=== PATIENT | male | born 1950 | race Caucasian/White ===

== ENCOUNTER 2017-09-24 07:09 | Day surgery (SDC) | payer OTHER ==
[2017-09-24] VITALS (8 sets, daily range): BP systolic 116–143; BP diastolic 69–82; PULSE 64–82; RESP 16–18; TEMP 97.8–99.2; O2SAT 92–97
[~2017-09-24] VITALS: Ht 180.3 cm; Wt 107.7 kg
[~2017-09-24 07:09] MED LIST: ADVA250A INH; ALBU1AER INH; ALUM5LIQ PO; AMIO200T PO; ASCO500C PO; CARD240C6 OR; CENTTAB9 PO; COMPTAB11; DOCU1CAP39 PO; FURO1TAB93 PO; KLOR20TA6 PO; LANO0.1212 OR; LISI-360 PO; MAGN30S PO; MAGN500T4 OR; METF-324 PO; OMEG1205; OXYC5 PO; PERC5TAB12 PO; PRAV20TA PO; SERT-129 PO; STOO100C PO; TEST200I13 IM; VALI10TA PO; VITA200C3 PO; VITAMIND; WARF-60 PO; ZOLP10TA3 PO; [UNRECOGNIZED DRUG - CODE] OR
[2017-09-24] MEDS ORDERED: INSULIN HUMAN REGULAR 1,000 UNITS/10 ML VIAL SQ PRN (08:15)
[2017-09-24] MEDS ORDERED: LACTATED RINGER'S 1000 ML IV PRN (08:15)
[2017-09-24] MEDS ORDERED: POVIDONE IODINE 5% (ANTISEPSIS KIT) 4 APPLICATIONS EACH NARE PRN (08:15)
[2017-09-24] MEDS ORDERED: LORazepam 1 MG TAB SL SCH (08:15)
[2017-09-24] MEDS: SODIUM CHLORID 0.9% 500 ML INJ 500 ML IV SCH (08:15)
[2017-09-24] MEDS ORDERED: SODIUM CHLORID 0.9% 500 ML IV PRN (08:15)
[2017-09-24] MEDS ORDERED: CHLORHEXIDINE GLUCONATE 2 % 1 PACK (2 CLOTHS) TOPICAL PRN (08:15)
[2017-09-24] MEDS ORDERED: METOPROLOL TARTRATE 25 MG TAB PO PRN (08:15)
[2017-09-24] MEDS ORDERED: VENTAER INH (08:40)
[2017-09-24] MEDS ORDERED: AMIO0.1T PO (08:40)
[2017-09-24] MEDS ORDERED: DIAZ2 PO (08:40)
[2017-09-24] MEDS ORDERED: XARE20TA PO (08:40)
[2017-09-24] MEDS ORDERED: LISI10TA3 PO (08:40)
[2017-09-24] MEDS ORDERED: ADVA100A INH (08:40)
[2017-09-24] MEDS ORDERED: DILT120T PO (08:40)
[2017-09-24] MEDS ORDERED: SERT-129 PO (08:40)
[2017-09-24 09:00] LABS: APTT (PATIENT) 25.9 SEC (24.3-30.1); PROTHROMBIN TIME - PATIENT 11.6 SEC (9.8-11.6)
[2017-09-24 09:05] LABS: AUTOMATED NEUTROPHIL # 3.1 TH/MM3 (1.8-7.7); BASOPHIL % 0.3 % (0.0-2.0); EOSINOPHIL # 0.3 TH/MM3 (0-0.4); EOSINOPHIL % 4.9 % (0.0-4.0); HEMATOCRIT 39.9 % (39.0-51.0); HEMO FLAGS DIFF FINAL; LYMPH % 26.5 % (9.0-44.0); LYMPHOCYTE # 1.4 TH/MM3 (1.0-4.8); MEAN CELL VOLUME 92.2 FL (80.0-100.0); MEAN CORPUSCULAR HEMOGLOBIN 31.1 PG (27.0-34.0); MEAN CORPUSCULAR HGB CONC 33.7 % (32.0-36.0); MONO % 10.5 % (0.0-8.0); NEUT % 57.8 % (16.0-70.0); PLATELET COUNT 178 TH/MM3 (150-450); RED BLOOD COUNT 4.32 MIL/MM3 (4.50-5.90); RED CELL DISTRIBUTION WIDTH 12.6 % (11.6-17.2); WHITE BLOOD COUNT 5.3 TH/MM3 (4.0-11.0)
[2017-09-24 09:24] LABS: BICARBONATE 29.9 MEQ/L (21.0-32.0); POTASSIUM 3.8 MEQ/L (3.5-5.1)
[2017-09-24] MEDS ORDERED: HEPARIN-D5W 25,000 U/250 ML 250 ML ONE (09:35)
[2017-09-24] MEDS ORDERED: ISOPROTERENOL HCL 1 MG/5 ML AMP ONE (09:36)
[2017-09-24] MEDS ORDERED: FUROSEMIDE 40 MG/4 ML VIAL ONE (09:36)
[2017-09-24] MEDS ORDERED: HEPARIN SODIUM - IV 10,000 UNITS/10 ML VIAL ONE ×2 (09:36→12:00)
[2017-09-24] MEDS ORDERED: SODIUM CHLOR 0.9% 250 ML INJ 250 ML ONE (09:36)
[2017-09-24] MEDS ORDERED: PROTAMINE SULFATE 50 MG/5 ML VIAL ONE (09:36)
[2017-09-24] MEDS ORDERED: LEVOFLOXACIN 500 MG PREMIX INJ 100 ML IV ONE (10:08)
[2017-09-24] MEDS ORDERED: HEPARIN-NS/PF INJ 1,000 ML ONE (10:10)
[2017-09-24] MEDS ORDERED: RESP: ALBUTEROL 2.5 MG/3 ML NEB (SCH) ONE (10:34)
--- NOTE | 2017-09-24 12:39 | CATHPROC ---
[employer] HIS Report Study Information Study Number Admission Scheduled Start Study Start [id number] Sep 24 2017 7:09AM 09/24/2017 Sep 24 2017 9:36AM [place] Service Electrophysiology Study Admit Source Facility Department Other [facility] - Portrait Consultant Physician and Clinical Staff Initial Hans Padilla Dry Kiln Operator Denys Lindquist,RT(R) Other Anesthesia, EMPLOYMENT PROGRAMS ANALYST Recorder Barbara Sandoval,RN Scrub Carla Connell,RT(R) TECH2 Procedures Performed Procedure Location (Site) Vessel Name Cardioversion ICE CATHETER INSERT RA Atruim Equipment Time Railroad Signal And Switch Operator Description Size Mfg Part Number Used/Scraped NEEDLE, TRANSSEPTAL NRG 98 10:27 [facility] [id number] Used C1 [employer]/ EP 10:27 KIT, TRANSDUCER / AFIB [id number] Used PACER [id number] CATHETER, TACTICATH ABLAT BUNDLE 10:27 [facility] [place] Used 65 BUNDLE *[id number] BUNDLE [id number] CATHETER, FR7 OPTIMA SPIRAL 10:27 [facility] [place] FR7 *[id number]- Used BUNDLE BUNDLE [id number] 10:27 [facility] [place] CATHETER, JSN, QUAD BUNDLE FR 5 *[id number]- Used BUNDLE [id number] 10:27 [facility] CATHETER, JSN, QUAD BUNDLE FR 5 *[id number]- Used BUNDLE [id number] SET, COOL POINT TUBING 10:27 [facility]UND[facility] [place] *[id number]- Used BUNDLE BUNDLE SHEATH, FR8.5 STEERABLE SM 10:27 [facility] [place] 71CM [id number] Used 71CM BUNDLE COVER, TRANSDUCER CABLE 10:27 [employer]ENTS [id number] Used ACUNAV 10:27 CORDIS/PACER SHEATH, FR10 TAHIR 11CM FR 10 [id number] Used 10:27 CORDIS/PACER SHEATH, FR9 TAHIR 11CM FR 9 [id number] Used [id number] 10:27 [employer]ES PACK, CCL CUSTOM * Used *[id number] 10:27 [employer] PACER YA, LIMB * 9960 *[id number] Used [id number] 10:27 [employer] MEDICAL SHEATH, FR4.5 PRELUDE 11CM FR 4.5 Used 035ACT [id number] 10:47 [employer] MEDICAL SHEATH, FR4.5 PRELUDE 11CM FR 4.5 Used 035ACT [id number] 10:27 NAMIC TUBING, HIGH PRESSURE 48" 48" Used *[id number] 10:27 NAMIC TUBING, HIGH PRESSURE 48" 48" Used *[id number] 10:27 [employer] MEDICAL BLANKET,WARM AIR CCL * Used *[id number] 10:27 [facility] [place] MEDICAL ELECTRODE KIT, ANJU X SURFACE * [id number] Used [id number] 10:27 [facility] MEDICAL SHEATH, EPS, FR6 FAST CATH FR 6 Used *[id number] 10:27 [facility] MEDICAL SHEATH, EPS, FR7 FAST CATH FR 7 [id number] Used [id number] 10:27 [facility] MEDICAL SHEATH, EPS, FR8 FAST CATH FR 8 Used *[id number] CATHETER, ACUNAV FR10 ICE [id number] 10:56 DEJAH FR 10 Used (DEJAH) *[id number] [facility] PAD, ELECTROSURGICAL 10:27 * [id number] *[id number] Used SURGICAL GROUNDING (BLUE) History: Allergies Allergy Reaction aspirin amoxicillin penicillin G NKA NSAID PCN, AMOXACILLIAN History: Risk Factors Family History of Hypertension Dyslipidemia Previous [place] Previous Heart Failure Premature CAD Yes Yes Yes No No Prior Valve Prior PCI Prior CABG Surgery No No No Cerebrovascular Peripheral Artery Chronic Lung On Dialysis Diabetes Diabetes Therapy Disease Disease Disease No No No Yes Yes Oral Medication Medication Total Dose (Bolus/Oral) Medication Total Dosage/Unit 1% XYLOCAINE 40 mL HEPARIN 46288 units Medications (Bolus/Oral) Medication Time Given Dosage/Unit Administered By Reason 09/24/2017 10:40:23 1% XYLOCAINE 20 mL Hans Torres AM 20 mL 1% XYLOCAINE given in lab by Hans Torres in Left Groin via Subcutaneous. 09/24/2017 10:48:23 1% XYLOCAINE 20 mL Hans Torres AM 20 mL 1% XYLOCAINE given in lab by Hans Torres in Right Groin via Subcutaneous. 09/24/2017 10:56:33 HEPARIN 83274 units Anesthesia, EMPLOYMENT PROGRAMS [place]NALYST [place] [address] units HEPARIN given in lab by Anesthesia, EMPLOYMENT PROGRAMS ANALYST via Peripheral IV. 09/24/2017 11:47:29 HEPARIN 2000 units Anesthesia, EMPLOYMENT PROGRAMS ANALYST AM 2000 units HEPARIN given in lab by Anesthesia, EMPLOYMENT PROGRAMS ANALYST via Peripheral IV. 09/24/2017 12:01:49 HEPARIN 3000 units Anesthesia, EMPLOYMENT PROGRAMS ANALYST PM 3000 units HEPARIN given in lab by Anesthesia, EMPLOYMENT PROGRAMS ANALYST via Peripheral IV. Medication (Drip) Medication Time Given Dosage/Unit Concentration/Unit Diluent (ml) Solution 09/24/2017 12:16:33 ISUPREL 10 mcg/min 1 mg 250 NaCl .9 PM 10 mcg/min ISUPREL given in lab by Anesthesia, EMPLOYMENT PROGRAMS ANALYST via Peripheral IV. Pump/Drip Flow = 150 ml/hr usi ng NaCl .9 with a concentration of 1 mg in 250 ml. Initial Case Assessment Cardiovascular HR Rhythm NIBP Chest Pain 79 AFIB 116/79 0 Edema Present Skin color Skin None Normal Warm Dry Circulatory - Right Pulses Dorsalis Pedis 1 Scale (0,1,2,3,4,d) Circulatory - Left Pulses Dorsalis Pedis 1 Scale (0,1,2,3,4,d) Neurological State Oriented to time-place- Alert Moves all extremities person Respiration - General Respiration Rate SpO2 (%) (B/min) 20 97 Final Case Assessment Cardiovascular HR Rhythm NIBP Chest Pain 96 SR 128/67 0 Edema Present Skin color Skin None Normal Warm Dry Circulatory - Right Pulses Dorsalis Pedis 1 Scale (0,1,2,3,4,d) Circulatory - Left Pulses Dorsalis Pedis 1 Scale (0,1,2,3,4,d) Neurological State Oriented to time-place- Alert Moves all extremities person Respiration - General Respiration Rate SpO2 (%) O2 (lpm) (B/min) 18 99 4 Chronological Log Time Study Chronological Log 9:47:51 Patient arrived via Bed. 9:47:54 Patient Name, D.O.B, / Armband Verified By R.N. 9:47:55 Consent signed by the physician and the patient and verified by the Portrait Consultant staff. 9:47:56 Pre-op and post- op instructions given; patient acknowledges understanding of instructions. 9:47:59 Anesthesia at bedside. Assumes care of patient. SEE RECORDS FOR ALL MEDS AND VITALS DURING PROCEDURE 10:22:57 Verbal Stimulation=2 Physical Stimulation=2 Airway=2 Respiration=2 TOTAL=8. (0=absent, 1=li mited, 2=present) 10:23:14 Patient has been NPO for More than 6Hrs. 10:23:16 Skin Breakdown- LEFT GROIN RASH 10:23:27 Patient Warmer Placed on the Table. 10:23:28 Disposable Defibrillator Pads Placed On Patient. 10:23:29 Keshawn Prominences Protected 10:23:30 IV Warmer Connected To Patient. 10:23:31 A # 20 IV was noted in the Antecubital (right). Grade = 0 10:23:56 A # 20 IV was noted in the Hand (right). Grade = 0 10:24:05 History and physical on the chart or being dictated. Assessment: Initial Case, HR=79 BPM, Rhythm=AFIB, DUPO=953/79 mmhg, Chest Pain=0, Edema=None, Color=Normal, Skin = Warm, Dry Right Pulses: Abdelrahman Ped=1 10:24:06 Left Pulses: Abdelrahman Ped=1 Neurological: State=Alert, Ox3, PHILLIPS Respiration: Resp=20 B/min, SpO2=97 % 10:25:57 Table restraints applied according to hospital policy 10:25:58 Bilateral groins prepped with 2% chlorhexidine, and draped after a 3 minute waiting time. 10:26:02 MD paged 10:26:12 PACU called. Spoke to CARLA 10:27:46 Reference ECG taken Time Out. Correct patient, procedure, procedure equipment, site and side verified with physicia n present. Time 10:35:16 concurred by MD, individual staff and EMPLOYMENT PROGRAMS ANALYST. Time Out #2 - Consents verified, patient in correct position, all results are labled and displa yed, safety precautions 10:35:17 taken, antibiotics administered. Time out concurred by MD, individual staff and EMPLOYMENT PROGRAMS ANALYST in procedu re 10:36:27 Case Start 10:37:10 YNES IN PROGRESS 10:39:15 YNES COMPLETE 10:40:23 20 mL 1% XYLOCAINE given in lab by Hans Torres in Left Groin via Subcutaneous. 10:42:00 Vascular access was obtained in the Fem Vein (left). 10:42:07 Vascular access was obtained in the Fem Vein (left). 10:42:08 Vascular access was obtained in the Fem Vein (left). 10:42:09 Vascular access was obtained in the Fem Art (left). 10:45:39 A SHEATH, FR4.5 PRELUDE 11CM FR 4.5 was advanced into the Fem Art (left) using the Modified Seldinger technique. 10:46:01 A SHEATH, EPS, FR6 FAST CATH FR 6 was advanced into the Fem Vein (left) using the Modified Seldinger technique. 10:46:10 A SHEATH, EPS, FR7 FAST CATH FR 7 was advanced into the Fem Vein (left) using the Modified Seldinger technique. 10:46:13 A SHEATH, FR10 THAIR 11CM FR 10 was advanced into the Fem Vein (left) using the Modified S eldinger technique. 10:48:23 20 mL 1% XYLOCAINE given in lab by Hans Torres in Right Groin via Subcutaneous. 10:48:32 Vascular access was obtained in the Fem Vein (right). 10:49:19 A SHEATH, EPS, FR8 FAST CATH FR 8 was advanced into the Fem Vein (right) using the Modified Seldinger technique. A CATHETER, JSN, QUAD BUNDLE FR 5 was advanced vis Fem Vein (left) and placed in the CS. Placem ent was visually 10:52:47 confirmed under fluoroscopy. A CATHETER, JSN, QUAD BUNDLE FR 5 was advanced vis Fem Vein (left) and placed in the HIS. Place ment was 10:53:42 visually confirmed under fluoroscopy. 10:55:31 CATHETER, ACUNAV FR10 ICE (Aniika) FR 10 Was Postioned. A SHEATH, FR8.5 STEERABLE SM 71CM BUNDLE 71CM was exchanged in the Fem Vein (right). This was n ecessary in 10:56:10 order to accomodate a larger catheter. 10:56:33 34990 units HEPARIN given in lab by Anesthesia, EMPLOYMENT PROGRAMS ANALYST via Peripheral IV. 10:57:03 BAYLIS NEEDLE INSERTED 11:00:25 A eps was advanced to the right atrium and passed through the septal wall to the left atriu m. 11:00:28 BAYLIS NEEDLE REMOVED 11:02:26 Activated Clotting Time Drawn A CATHETER, FR7 OPTIMA SPIRAL BUNDLE FR7 was advanced vis Fem Vein (right) and placed in the LA . Placement 11:02:31 was visually confirmed under fluoroscopy. 11:02:45 MAPPING IN PROGRESS 11:08:15 MAPPING COMPLETE 11:08:37 SPIRAL OUT 11:10:54 ACT (Normal Range 90-180) = 383 11:24:35 A catheter was advanced over a wire. contrast was used for injections. 11:24:40 ABLATION IN PROGRESS 11:41:06 Activated Clotting Time Drawn 11:47:18 ACT (Normal Range 90-180) = 313 11:47:29 2000 units HEPARIN given in lab by Anesthesia, EMPLOYMENT PROGRAMS ANALYST via Peripheral IV. 11:54:50 Activated Clotting Time Drawn 12:00:39 ACT (Normal Range 90-180) = 321 12:01:49 3000 units HEPARIN given in lab by Anesthesia, EMPLOYMENT PROGRAMS ANALYST via Peripheral IV. 12:07:12 Activated Clotting Time Drawn 12:14:16 ACT (Normal Range 90-180) = 427 12:15:10 ECG rhythm of AF noted. Patient cardioverted at 200 joules. Success SYNC 10 mcg/min ISUPREL given in lab by Anesthesia, EMPLOYMENT PROGRAMS ANALYST via Peripheral IV. Pump/Drip Flow = 150 ml /hr using NaCl .9 12:16:33 with a concentration of 1 mg in 250 ml. 12:26:03 STOP ISUPREL 12:28:00 Case End 12:37:24 Catheter(s) removed without difficulty 12:37:29 Sheath(s) left in place, will be removed in Holding Area 12:37:31 Sterile dressing applied to site 12:37:32 No case complications noted. 12:37:32 Cine recording checked. 12:37:33 Bedside Report will be given. 12:37:39 PACU called. Spoke to CARLA A SHEATH, FR9 TAHIR 11CM FR 9 was exchanged in the Fem Vein (right). This was necessary in or daisy to minimize 12:37:51 site leakage. 12:38:03 Defibrillator and ground pads removed. Skin intact. Assessment: Final Case, HR=96 BPM, Rhythm=SR, CKJY=685/67 mmhg, Chest Pain=0, Edema=None, Pierz r=Normal, Skin = Warm, Dry Right Pulses: Abdelrahman Ped=1 12:38:22 Left Pulses: Abdelrahman Ped=1 Neurological: State=Alert, Ox3, PHILLIPS Respiration: Resp=18 B/min, SpO2=99 %, O2=4 lpm End Study - Contrast Media Used In Study Contrast Total Opened (mL) Total Used (mL) Total Wasted (mL) Unspecified 0 0 0 End Study - Radiation Exposure Fluoro Time (minutes) 3.4 End Study - Patient Disposition Complications Transferred To Interventional Outcome No Telemetry Bed successful
[2017-09-24] MEDS ORDERED: ALBUTEROL SULFATE 90 MCG/ACT HFA 8 GM INHALER INH PRN (13:30)
[2017-09-24] MEDS ORDERED: SODIUM CHLOR 0.9% 250 ML INJ 250 ML IV PRN (13:30)
[2017-09-24] MEDS ORDERED: LORazepam 2 MG/ML VIAL IV PUSH PRN (13:30)
[2017-09-24] MEDS ORDERED: ATROPINE SULFATE 1 MG/ML VIAL IV PUSH PRN (13:30)
[2017-09-24] MEDS ORDERED: ONDANSETRON HCL 4 MG/2 ML VIAL IV PUSH PRN (13:30)
[2017-09-24] MEDS ORDERED: BACITRACIN OINT 0.9 GM PKT TOP ONE (13:30)
[2017-09-24] MEDS ORDERED: LIDOCAINE HCL 1% 50 ML VIAL INFIL PRN (13:30)
[2017-09-24] MEDS ORDERED: METOCLOPRAMIDE HCL 10 MG/2 ML VIAL IV PUSH PRN (13:30)
[2017-09-24] MEDS ORDERED: oxyCODONE/ACETAMINOPHEN 5 MG/325 MG TAB PO PRN (13:30)
--- NOTE | 2017-09-24 13:32 | PD.CARD ---
Atrial Fibrillation Ablation PROCEDURE DATE: Sep 24, 2017 PROCEDURES PERFORMED: 1. Electrophysiology study on Isuprel infusion 2. CS cannulation 3. 3-D mapping 4. Transseptal approach 5. Right and left heart catheterization 6. Intracardiac echo 7. Radiofrequency ablation of atrial fibrillation 8. Pulmonary vein isolation 9. Posterior wall ablation 10. Mitral valve isolation 11. Mitral line creation 12. Left atrial tachycardia ablation 13. Roof line creation 14. Floor line creation 15. Anterior wall ablation 16. Cardioversion INDICATIONS FOR THE PROCEDURE Mr. Cruz is a 66-year-old male with atrial fibrillation, previous ablation over [address] Shaw, on anticoagulation, very symptomatic referred for electrophysiology study and ablation. The risks, the nature and the benefits of the procedure were clearly stated to him. The risks include pneumothorax, cardiac perforation, stroke, need for open heart surgery and even . The patient understood and agreed to proceed. DESCRIPTION OF THE PROCEDURE IN DETAIL As written informed consent was obtained prior to esophageal echocardiogram, the patient was kept on the table where he was prepped and draped in the usual sterile fashion. Conscious sedation was initiated and maintained throughout the procedure by the anesthesiologist. Once sedation was verified, the right and left inguinal areas were anesthetized with 2% Xylocaine. Using modified Seldinger technique, the left femoral vein was cannulated on three occasions, three guidewires were advanced. Over the wire a 6, 7 and a 10-Anguillan Hemaquet were advanced. Then the left femoral artery was cannulated on one occasion, one guidewire was advanced. Over the wire a 4-Anguillan Hemaquet was advanced. Then the right femoral vein was cannulated on one occasion, one guidewire was advanced. Over the wire a 8-Anguillan Hemaquet was advanced. Then under fluoroscopic guidance through the 6 and 7-Anguillan Hemaquet, two 5-Anguillan Lizet curved quadripolar electrophysiology catheters were advanced and placed around the His as well as coronary sinus. Basic interval was measured. The patient was in atrial fibrillation. Through the 10-Anguillan Hemaquet, a Cordis Diez AcuNav intracardiac echo catheter was advanced and placed at the right atrium. Multiple view was obtained. There is no pericardial effusion, pulmonary vein was seen, atrial septal was visualized. Then the 8-Anguillan Hemaquet in the right femoral vein was exchanged for Agilis transseptal sheath that was placed all the way to the superior vena cava. Through the sheath a Karon needle was advanced, then the sheath, the dilator and the needle were progressed until foci engaged. Once engaged, the needle was advanced. RF was delivered for 2 seconds. I was able to cross into the left atrium. Once the needle crossed, the dilator was advanced. Once the dilator crossed, the sheath was advanced. Once the sheath crossed, the dilator and the needle were removed. At this point I did flood the system and fluid movement was seen in the left atrium the indicates the sheath is in good position. The patient already received 10,000 units of heparin. The goal is to keep an ACT around 350 during ablation. Then through the sheath a [place] 20 pulse circumferential catheter was advanced. Using Koudai endocardial solution mapping system, a two-dimensional configuration of the left atrium was obtained. Points were taken at the left superior and inferior veins, right superior and inferior veins, mitral valve, and appendages. Then through the sheath a [place] TactiCath 65cm 3.5mm irrigated tipped mapping and radiofrequency ablation catheter was advanced. Esophageal probe was placed temperature monitoring during ablation. When it increased to 0.5 degrees Celsius above baseline, I moved to a different area of the atrium. First I did isolate the left superior and inferior vein. I did make a [place] around the veins. Posterior was ablated. Then a roof line was created, a floor line was created, then the mitral valve was isolated. At that point the patient was in left atrial tachycardia. I did create a line from the floor to the roof area, passing by the left atrial appendage. Then the right superior and inferior veins were isolated. I did remap the atrium. There is no significant signal in the atrium. At this point I decided to proceed with cardioversion. A 200 sync biphasic joule was delivered that converted the patient into sinus rhythm. At that point I did advance the circumferential catheter again into the vein. There was no signal into the vein, pacing from the vein showed no conduction to the atrium. Isuprel infusion was initiated at 10 mcg for over 10 minutes. No tachyarrhythmia was induced, post Isuprel no tachyarrhythmia was induced. At that point the procedure was complete. All catheters were removed, atrial septal sheath was exchanged for 9-Anguillan Hemaquet, intracardiac echo showed no pericardial effusion. There is still good flow in the pulmonary vein. The patient is going to be transferred to the recovery room. No incident report. The patient tolerated the procedure. Blood loss was minimal. FINDINGS 1. Electrocardiogram: At baseline the patient was in atrial fibrillation, post procedure the patient was in sinus rhythm. 2. Basic interval: Base cycle length was around 640ms. Post ablation she was around 980 milliseconds. AH at 90 and HV at 46 milliseconds. 3. Tachyarrhythmia: Atrial fibrillation was mapped and ablated. Atrial tachycardia was ablated. The ablation was successful. CONCLUSION Successful electrophysiology study, mapping, radiofrequency ablation of atrial fibrillation, left atrial tachycardia, pulmonary vein isolation, posterior ablation, mitral valve isolation, mitral line creation, roof line creation, floor line creation, left atrial tachycardia, and cardioversion. COMMENTS AND RECOMMENDATIONS The patient is going to be transferred to the telemetry unit. Will be observed and when stable can be discharged home. Hans Torres MD Sep 24, 2017 13:31
[2017-09-24] MEDS ORDERED: DO NOT ADM ANY ANTICOAGULANT DRUGS PRN (14:15)
[2017-09-24] MEDS ORDERED: GLYCOPYRROLATE 1 MG/5 ML SYRINGE IV PUSH ONE (14:21)
[2017-09-24] MEDS ORDERED: SODIUM CHLOR 0.9% 250 ML INJ 750 ML IV ONE (14:21)
[2017-09-24] MEDS ORDERED: MORPHINE SULFATE 4 MG/ML INJ IV ONE (14:21)
[2017-09-24] MEDS ORDERED: MIDAZOLAM HCL 2 MG/2 ML VIAL IV ONE (14:21)
[2017-09-24] MEDS ORDERED: PROPOFOL 200 MG/20 ML AMP IV ONE (14:21)
[2017-09-24] MEDS ORDERED: SODIUM CHLORID 0.9% 500 ML INJ 500 ML IV ONE (14:21)
[2017-09-24] MEDS ORDERED: ONDANSETRON HCL 4 MG/2 ML VIAL IV PUSH ONE (14:21)
[2017-09-24] MEDS ORDERED: ROCURONIUM INJ 50 MG/5 ML SYRINGE IV PUSH ONE (14:21)
[2017-09-24] MEDS ORDERED: DEXAMETHASONE SOD PHOS 4 MG/ML VIAL IV ONE (14:21)
[2017-09-24] MEDS ORDERED: NEOSTIGMINE 3 MG/3 ML SYR IV ONE (14:21)
[2017-09-24] MEDS: SERTRALINE HCL 100 MG TAB PO SCH (15:50)
[2017-09-24] MEDS: AMIODARONE 200 MG TAB PO SCH (15:50)
[2017-09-24] MEDS: oxyCODONE/ACETAMINOPHEN 5 MG/325 MG TAB PO PRN ×2 (15:50→21:14)
[2017-09-24] MEDS: DILTIAZEM HCL 60 MG TAB PO SCH ×2 (17:12→21:14)
[2017-09-24] MEDS ORDERED: PILL SPLITTER OTHER PRN (17:15)
[2017-09-24] MEDS ORDERED: DIAZEPAM 2 MG TAB PO PRN (17:15)
--- NOTE | 2017-09-24 17:59 | EKG ---
Date Performed: 09/24/2017 Time Performed: 09:06:26 PTAGE: 66 years EKG: Atrial fibrillation with PVC(s) Right bundle branch block Inferior T wave changes are nonsp ecific Since prior tracing patient developed atrial fibrillation. Abnormal ECG PREVIOUS TRACING : 01/11/2013 05.25 DOCTOR: Nuria Pierre Interpretating Date/Time 09/24/2017 17:58:05
[2017-09-24] MEDS ORDERED: RIVAROXABAN 20 MG TAB PO SCH (18:00)
[2017-09-24] MEDS ORDERED: DIAZEPAM 2 MG TAB PO SCH (21:00)
[2017-09-24] MEDS: BUDESONIDE-FORMOTEROL 80/4.5 MCG INHALER INH SCH (22:37)
--- NOTE | 2017-09-24 23:27 | EKG ---
Date Performed: 09/24/2017 Time Performed: 13:37:13 PTAGE: 66 years EKG: Sinus rhythm POSSIBLE RIGHT VENTRICULAR CONDUCTION DELAY BORDERLINE ECG PREVIOUS TRACING : 09/24/2017 09.06 Compared to the previous tracing previously atrial fibrilla tion DOCTOR: Amarjit Mejía Interpretating Date/Time 09/24/2017 23:26:04
[2017-09-25] VITALS (13 sets, daily range): BP systolic 113–121; BP diastolic 56–69; PULSE 54–70; RESP 16–22; TEMP 97; O2SAT 93–94
[2017-09-25] MEDS: SODIUM CHLORID 0.9% 500 ML INJ 500 ML IV SCH (00:55)
[2017-09-25 07:05] LABS: APTT (PATIENT) 30.8 SEC (24.3-30.1); INTERNATIONAL NORMALIZED RATIO 1.3 RATIO; PROTHROMBIN TIME - PATIENT 14.7 SEC (9.8-11.6)
--- NOTE | 2017-09-25 08:07 | PD.CARD.PN ---
Subjective Subjective Remarks Feels ok. Objective Medications Current Medications Medications (Trade) Dose Ordered Sig/Irlanda Route Start Time Stop Time Status Last Admin Sodium Chloride 500 ml @ 30 mls/hr [id number] IV 09/24/17 08:15 09/24/17 08:15 (Ativan) 1 mg APPLIED COMPUTER SCIENCE PROFESSOR SL 09/24/17 08:15 09/27/17 08:14 Lactated Ringer's 1,000 ml @ 30 mls/hr Q24H PRN IV 09/24/17 08:15 09/27/17 08:14 Sodium Chloride 500 ml @ 30 mls/hr [id number] PRN IV 09/24/17 08:15 09/27/17 08:14 (Lopressor) 25 mg APPLIED COMPUTER SCIENCE PROFESSOR PRN PO 09/24/17 08:15 09/27/17 08:14 (Betadine 5% Antisepsis Kit) 1 applic APPLIED COMPUTER SCIENCE PROFESSOR PRN EACH NARE 09/24/17 08:15 09/27/17 08:14 (Chlorhexidine 2% Cloth) 3 pack APPLIED COMPUTER SCIENCE PROFESSOR PRN TOPICAL 09/24/17 08:15 09/27/17 08:14 (NovoLIN R INJ) See Protocol Table ... APPLIED COMPUTER SCIENCE PROFESSOR PRN SQ 09/24/17 08:15 09/27/17 08:14 (Percocet 5-325 Mg) 1 tab Q4H PRN PO 09/24/17 13:30 (Percocet 5-325 Mg) 2 tab Q4H PRN PO 09/24/17 13:30 09/24/17 21:14 (Ativan Inj) 0.5 mg UNSCH PRN IV PUSH 09/24/17 13:30 09/25/17 13:29 09/24/17 13:13 (Atropine Inj) 0.5 mg UNSCH PRN IV PUSH 09/24/17 13:30 Sodium Chloride 250 ml @ 500 mls/hr ONCE PRN IV 09/24/17 13:30 09/25/17 13:29 (Reglan Inj) 10 mg Q4H PRN IV PUSH 09/24/17 13:30 (Zofran Inj) 4 mg Q4H PRN IV PUSH 09/24/17 13:30 (Xylocaine 1% Inj (50 ml)) 10 ml UNSCH PRN INFIL 09/24/17 13:30 09/25/17 13:29 (Proair Hfa Inh) 1 puff Q4H PRN INH 09/24/17 13:30 (Cordarone) 100 mg DAILY PO 09/24/17 15:00 09/24/17 15:50 (Valium) 2 mg HS PO 09/24/17 21:00 09/24/17 22:37 (Prinivil) 10 mg DAILY PO 09/25/17 09:00 (Xarelto) 20 mg DAILY@1800 PO 09/24/17 18:00 09/24/17 17:12 (Zoloft) 100 mg DAILY PO 09/24/17 15:00 09/24/17 15:50 (Cardizem) 120 mg QID PO 09/24/17 18:00 09/24/17 21:14 (Symbicort 80-4.5 Mcg Inh) 2 puff BID INH 09/24/17 21:00 09/24/17 22:37 Miscellaneous Information ALL NURSING DEPARTME... UNSCH PRN .XX 09/24/17 14:15 09/25/17 14:14 (Valium) 1 mg TID PRN PO 09/24/17 17:15 (Pill Splitter) 1 ea UNSCH PRN OTHER 09/24/17 17:15 Vital Signs / I&O Vital Signs Date Time Temp Pulse Resp B/P (MAP) Pulse Ox O2 Delivery O2 Flow Rate FiO2 09/25/17 06:00 56 09/25/17 05:00 57 09/25/17 04:04 97.0 70 16 121/69 (86) 93 09/25/17 04:00 62 09/25/17 03:00 62 09/25/17 02:00 57 09/25/17 01:00 55 09/25/17 00:00 60 09/24/17 23:25 97.9 68 16 121/69 (86) 94 09/24/17 23:00 64 09/24/17 22:40 16 09/24/17 22:00 66 09/24/17 21:00 80 09/24/17 20:00 99.2 82 16 142/79 (100) 93 09/24/17 20:00 80 09/24/17 19:00 72 09/24/17 16:00 78 09/24/17 16:00 97.8 79 16 143/82 (102) 92 09/24/17 15:35 76 14 143/77 (99) 96 Nasal Cannula 4 09/24/17 15:15 76 14 155/76 (102) 96 Nasal Cannula 4 09/24/17 15:00 72 14 149/82 (104) 96 Nasal Cannula 4 09/24/17 14:45 69 14 169/77 (107) 93 Nasal Cannula 4 09/24/17 14:30 72 14 156/74 (101) 91 Nasal Cannula 4 09/24/17 14:15 71 14 158/70 (99) 93 Nasal Cannula 4 09/24/17 14:00 68 14 165/84 (111) 92 Nasal Cannula 4 09/24/17 13:45 68 14 147/73 (97) 92 Nasal Cannula 4 09/24/17 13:30 70 14 174/74 (107) 91 Nasal Cannula 4 09/24/17 13:13 97.7 68 14 146/73 (97) 92 Nasal Cannula 4 09/24/17 08:42 98.1 79 18 116/79 (91) 97 I/O 09/24/17 09/24/17 09/24/17 09/25/17 09/25/17 09/25/17 07:00 15:00 23:00 07:00 15:00 23:00 Intake Total 500 ml 240 ml Output Total 350 ml Balance 500 ml -110 ml Intake Oral 240 ml IV Total 500 ml Output Urine Total 350 ml # Bowel Movements 0 Physical Exam GENERAL: Well-nourished, well-developed patient. SKIN: Warm and dry. Groin sites soft without bleeding or bruising. HEAD: Normocephalic. EYES: No scleral icterus. No injection or drainage. NECK: Supple, trachea midline. No JVD or lymphadenopathy. CARDIOVASCULAR: Regular rate and rhythm without murmurs, gallops, or rubs. RESPIRATORY: Breath sounds equal bilaterally. No accessory muscle use. GASTROINTESTINAL: Abdomen soft, non-tender, nondistended. EXTREMITIES: No cyanosis, or edema. NEUROLOGICAL: Awake, alert, and oriented x 3. Non-focal. Laboratory Laboratory Tests Test 09/24/17 08:06 09/25/17 06:15 White Blood Count 5.3 TH/MM3 Red Blood Count 4.32 MIL/MM3 Hemoglobin 13.4 GM/DL Hematocrit 39.9 % Mean Corpuscular Volume 92.2 FL Mean Corpuscular Hemoglobin 31.1 PG Mean Corpuscular Hemoglobin Concent 33.7 % Red Cell Distribution Width 12.6 % Platelet Count 178 TH/MM3 Mean Platelet Volume 8.7 FL Neutrophils (%) (Auto) 57.8 % Lymphocytes (%) (Auto) 26.5 % Monocytes (%) (Auto) 10.5 % Eosinophils (%) (Auto) 4.9 % Basophils (%) (Auto) 0.3 % Neutrophils # (Auto) 3.1 TH/MM3 Lymphocytes # (Auto) 1.4 TH/MM3 Monocytes # (Auto) 0.6 TH/MM3 Eosinophils # (Auto) 0.3 TH/MM3 Basophils # (Auto) 0.0 TH/MM3 CBC Comment DIFF FINAL Differential Comment Prothrombin Time 11.6 SEC 14.7 SEC Prothromb Time International Ratio 1.0 RATIO 1.3 RATIO Activated Partial Thromboplast Time 25.9 SEC 30.8 SEC Blood Urea Nitrogen 14 MG/DL Creatinine 0.62 MG/DL Random Glucose 89 MG/DL Calcium Level 8.6 MG/DL Sodium Level 139 MEQ/L Potassium Level 3.8 MEQ/L Chloride Level 103 MEQ/L Carbon Dioxide Level 29.9 MEQ/L Anion Gap 6 MEQ/L Estimat Glomerular Filtration Rate 129 ML/MIN Assessment and Plan Problem List: (1) Atrial fibrillation, controlled ICD Codes: I48.91 - Atrial fibrillation, controlled Status: Acute Plan: SR on tele. Stable for DC home. FU with Dr. saldaña in 3 weeks per my discussion with him . Zeynep Choi Sep 25, 2017 08:07
[2017-09-25] MEDS: BUDESONIDE-FORMOTEROL 80/4.5 MCG INHALER INH SCH (08:46)
[2017-09-25] MEDS: AMIODARONE 200 MG TAB PO SCH (08:47)
[2017-09-25] MEDS: DILTIAZEM HCL 60 MG TAB PO SCH (08:47)
[2017-09-25] MEDS: SERTRALINE HCL 100 MG TAB PO SCH (08:47)
[2017-09-25] MEDS ORDERED: LISINOPRIL 10 MG TAB PO SCH (09:00)
--- NOTE | 2017-09-25 19:26 | EKG ---
Date Performed: 09/25/2017 Time Performed: 04:52:54 PTAGE: 66 years EKG: Sinus rhythm with 1st degree A-V block Prolonged QT interval Inferior T wave changes are nonspecific Abnormal ECG PREVIOUS TRACING : 09/24/2017 13.37 Compared to prior tracing no significant change DOCTOR: Amarjit Mejía Interpretating Date/Time 09/25/2017 19:24:11
== END 2017-09-25 11:50 | disposition home or self-care (01) ==
LOC: HCAT 07:09 → HDIC 07:15 → HCIN 15:40 → HCAT 09-25 11:50
PROVIDERS: ATTEND Internal Medicine Interventional Cardiology
DX: I48.91 Unspecified atrial fibrillation (principal); R00.2 Palpitations; I11.9 Hypertensive heart disease without heart failure; R06.02 Shortness of breath; J44.9 Chronic obstructive pulmonary disease, unspecified; F17.210 Nicotine dependence, cigarettes, uncomplicated; Z79.01 Long term (current) use of anticoagulants
CPT/HCPCS: 00537; 80048; 85002; 85025; 85610; 85730; 86850; 86900; 86901; 92960; 93005; 93613; 93623; 93656; 93662; C1730; C1731; C1732; C1759; C1766; C2630; J1100; J1644; J1956; J2060; J2250; J2270; J2405; J2710; J2720; J3010; J7040; J7050; J7613; J1940

== ENCOUNTER 2017-11-16 14:55 | Day surgery (SDC) | payer OTHER ==
[~2017-11-16] VITALS: Ht 177.8 cm; Wt 108.7 kg
[~2017-11-16 14:55] MED LIST changes: +ADVA100A INH; -ADVA250A INH; -ALBU1AER INH; -ALUM5LIQ PO; +AMIO0.1T PO; -AMIO200T PO; -ASCO500C PO; -CARD240C6 OR; -CENTTAB9 PO; -COMPTAB11; +DIAZ2 PO; +DILT120T PO; -DOCU1CAP39 PO; -FURO1TAB93 PO; -KLOR20TA6 PO; -LANO0.1212 OR; -LISI-360 PO; +LISI10TA3 PO; -MAGN30S PO; -MAGN500T4 OR; -METF-324 PO; -OMEG1205; -OXYC5 PO; -PERC5TAB12 PO; -PRAV20TA PO; -STOO100C PO; -TEST200I13 IM; -VALI10TA PO; +VENTAER INH; -VITA200C3 PO; -VITAMIND; -WARF-60 PO; +XARE20TA PO; -ZOLP10TA3 PO; -[UNRECOGNIZED DRUG - CODE] OR
[2017-11-16] MEDS ORDERED: SODIUM CHLORID 0.9% 500 ML INJ 500 ML IV SCH (17:00)
[2017-11-16 17:07] LABS: AUTOMATED NEUTROPHIL # 4.1 TH/MM3 (1.8-7.7); BASOPHIL % 0.3 % (0.0-2.0); EOSINOPHIL % 0.6 % (0.0-4.0); HEMATOCRIT 40.1 % (39.0-51.0); HEMO FLAGS DIFF FINAL; LYMPH % 17.3 % (9.0-44.0); MEAN CELL VOLUME 91.7 FL (80.0-100.0); MEAN CORPUSCULAR HEMOGLOBIN 31.6 PG (27.0-34.0); MEAN CORPUSCULAR HGB CONC 34.4 % (32.0-36.0); MONO % 9.4 % (0.0-8.0); NEUT % 72.4 % (16.0-70.0); PLATELET COUNT 218 TH/MM3 (150-450); RED BLOOD COUNT 4.38 MIL/MM3 (4.50-5.90); RED CELL DISTRIBUTION WIDTH 12.4 % (11.6-17.2); WHITE BLOOD COUNT 5.7 TH/MM3 (4.0-11.0)
[2017-11-16] MEDS ORDERED: LEVOFLOXACIN 500 MG PREMIX INJ 100 ML IV ONE (17:09)
[2017-11-16] MEDS ORDERED: HEPARIN-NS/PF INJ 1,000 ML ONE (17:09)
[2017-11-16 17:10] VITALS: BP 120/81; PULSE 98; RESP 16; TEMP 98.5; O2SAT 90
[2017-11-16] MEDS ORDERED: HEPARIN-D5W 25,000 U/250 ML 250 ML ONE (17:10)
[2017-11-16] MEDS ORDERED: PROTAMINE SULFATE 50 MG/5 ML VIAL ONE (17:11)
[2017-11-16] MEDS ORDERED: ISOPROTERENOL HCL 1 MG/5 ML AMP ONE (17:11)
[2017-11-16] MEDS ORDERED: HEPARIN SODIUM - IV 10,000 UNITS/10 ML VIAL ONE ×2 (17:11→19:31)
[2017-11-16] MEDS ORDERED: LORazepam 1 MG TAB SL SCH (17:15)
[2017-11-16] MEDS ORDERED: METOPROLOL TARTRATE 25 MG TAB PO PRN (17:15)
[2017-11-16] MEDS ORDERED: POVIDONE IODINE 5% (ANTISEPSIS KIT) 4 APPLICATIONS EACH NARE PRN (17:15)
[2017-11-16] MEDS ORDERED: CHLORHEXIDINE GLUCONATE 2 % 1 PACK (2 CLOTHS) TOPICAL PRN (17:15)
[2017-11-16] MEDS ORDERED: SODIUM CHLORID 0.9% 500 ML IV PRN (17:15)
[2017-11-16] MEDS ORDERED: LACTATED RINGER'S 1000 ML IV PRN (17:15)
[2017-11-16 17:19] LABS: POTASSIUM 3.9 MEQ/L (3.5-5.1)
[2017-11-16 17:22] LABS: APTT (PATIENT) 21.8 SEC (24.3-30.1); INTERNATIONAL NORMALIZED RATIO 1.1 RATIO; PROTHROMBIN TIME - PATIENT 11.2 SEC (9.8-11.6)
[2017-11-16] MEDS ORDERED: oxyCODONE/ACETAMINOPHEN 5 MG/325 MG TAB PO PRN ×2 (20:30)
[2017-11-16] MEDS ORDERED: ONDANSETRON HCL 4 MG/2 ML VIAL IV PUSH PRN (20:30)
[2017-11-16] MEDS ORDERED: ATROPINE SULFATE 1 MG/ML VIAL IV PUSH PRN (20:30)
[2017-11-16] MEDS ORDERED: SODIUM CHLOR 0.9% 250 ML INJ 250 ML IV PRN (20:30)
[2017-11-16] MEDS ORDERED: ALBUTEROL SULFATE 90 MCG/ACT HFA 8 GM INHALER INH PRN (20:30)
[2017-11-16] MEDS ORDERED: BACITRACIN OINT 0.9 GM PKT TOP ONE (20:30)
[2017-11-16] MEDS ORDERED: LIDOCAINE HCL 1% 50 ML VIAL INFIL PRN (20:30)
[2017-11-16] MEDS ORDERED: METOCLOPRAMIDE HCL 10 MG/2 ML VIAL IV PUSH PRN (20:30)
[2017-11-16] MEDS ORDERED: LORazepam 2 MG/ML VIAL IV PUSH PRN (20:30)
[2017-11-16] MEDS ORDERED: BUDESONIDE-FORMOTEROL 80/4.5 MCG INHALER INH SCH (21:00)
[2017-11-16] MEDS ORDERED: DO NOT ADM ANY ANTICOAGULANT DRUGS PRN (21:24)
--- NOTE | 2017-11-16 21:28 | CATHPROC ---
Motility Count HIS Report Study Information Study Number Admission Scheduled Start Study Start [id number] Nov 16 2017 2:55PM 11/16/2017 Nov 16 2017 5:04PM [place] Service Electrophysiology Study Admit Source Facility Department Other [facility] Physician and Clinical Staff Initial Hans Padilla Commissioned Security Officer Denys Lindquist,RT(R) Other Anesthesia, ELECTRICAL CAD DESIGNER Recorder Meet Altman,RN Scrub Yani Camacho RCIS Procedures Performed Procedure Location (Site) Vessel Name Cardioversion ICE CATHETER INSERT RA Atruim Equipment Time Backrest Assembler Description Size Mfg Part Number Used/Scraped NEEDLE, TRANSSEPTAL NRG 98 [id number] 17:06 [facility] Used C1 *[id number] [employer]/ EP [id number] 17:06 KIT, TRANSDUCER / AFIB Used PACER *[id number] CATHETER, TACTICATH ABLAT BUNDLE 17:06 [facility] Used 65 BUNDLE *[id number] BUNDLE [id number] CATHETER, FR7 OPTIMA SPIRAL 17:06 [facility] FR7 *[id number] Used BUNDLE BUNDLE [id number] 17:06 [facility] CATHETER, JSN, QUAD BUNDLE FR 5 *[id number]- Used BUNDLE [id number] 17:06 [facility] CATHETER, JSN, QUAD BUNDLE FR 5 *[id number]- Used BUNDLE [id number] SET, COOL POINT TUBING 17:06 [facility] *[id number]- Used BUNDLE BUNDLE SHEATH, FR8.5 STEERABLE SM 17:06 [facility] 71CM [id number] Used 71CM BUNDLE SHEATH, FR8.5 STEERABLE SM 18:38 [facility] 71CM [id number] Used 71CM BUNDLE COVER, TRANSDUCER CABLE 612-113 17:06 [employer] Used ACUNAV *[id number] 17:06 CORDIS/PACER SHEATH, FR10 TAHIR 11CM FR 10 Used *[id number] 17:06 CORDIS/PACER SHEATH, FR9 TAHIR 11CM FR 9 [id number] Used [id number] 17:06 [employer] PACK, CCL CUSTOM * Used *[id number] 17:06 MEDLINE PACER YA, LIMB * 5020 *[id number] Used [id number] 17:06 [facility] MEDICAL SHEATH, FR4.5 PRELUDE 11CM FR 4.5 Used [id number] 17:06 NAMIC TUBING, HIGH PRESSURE 48" 48" Used *[id number] 17:06 NAMIC TUBING, HIGH PRESSURE 48" 48" Used *[id number] 17:06 [facility] BL[facility]ET,WARM AIR CCL * Used *[id number] 17:06 [facility] MEDICAL ELECTRODE KIT, ANJU X SURFACE * Used *[id number] 17:06 [facility] MEDICAL SHEATH, EPS, FR6 FAST CATH FR 6 Used *[id number] 17:06 [facility] MEDICAL SHEATH, EPS, FR7 FAST CATH FR 7 [id number] Used [id number] 17:06 [facility] MEDICAL SHEATH, EPS, FR8 FAST CATH FR 8 Used *[id number] CATHETER, ACUNAV FR10 ICE [id number] 18:34 DEJAH FR 10 Used (DEJAH) *[id number] [facility] PAD, ELECTROSURGICAL 17:06 * [id number] *[id number] Used SURGICAL GROUNDING (BLUE) History: Allergies Allergy Reaction aspirin amoxicillin penicillin G NKA NSAID PCN, AMOXACILLIAN Labs Hgb (g/dl) Hct (%) RBC (MIL/MM3) WBC (l/cumm) Platelets (thousands) 11.60-17.00 35.00-51.00 4.00-5.90 4.00-11.00 150.00-450.00 13.8 40.1 4.3 5.7 218 Glucose (mg/dl) BUN (mg/dl) Creatinine (mg/dl) BUN:Creatinine (1:x) 74.00-106.00 7.00-18.00 0.50-1.30 10.00-20.00 112 10 0.7 14.3 Na (meq/l) K (meq/l) Cl (meq/l) CO2 (mmol/L) Ca (mg/dl) 136.00-145.00 3.50-5.10 98.00-107.00 21.00-32.00 8.50-10.10 138 3.9 102 32 8.6 PT (sec) PTT (sec) INR (PTT:PT) 9.80-11.60 24.30-30.10 0.90-1.10 11.2 21.8 1.1 CPK-MB (ng/ML) 0.50-3.60 Not Drawn Medication Medication Total Dose (Bolus/Oral) Medication Total Dosage/Unit 1% XYLOCAINE 40 mL HEPARIN 76503 units PROTAMINE 50 mg Medications (Bolus/Oral) Medication Time Given Dosage/Unit Administered By Reason 1% XYLOCAINE 11/16/2017 6:21:05 PM 20 mL Hans Torres 20 mL 1% XYLOCAINE given in lab by Hans Torres in Left Groin via Subcutaneous. Ordered by Kalyan Torres 1% XYLOCAINE 11/16/2017 6:26:03 PM 20 mL Hans Torres 20 mL 1% XYLOCAINE given in lab by Hans Torres in Right Groin via Subcutaneous. Ordered by Hemant Torres. HEPARIN 11/16/2017 6:34:43 PM 15422 units Anesthesia, ELECTRICAL CAD DESIGNER 41477 units HEPARIN given in lab by Anesthesia, ELECTRICAL CAD DESIGNER in Left Antecubital via Peripheral IV. Ordered b Hans Maddox. HEPARIN 11/16/2017 6:49:59 PM 3000 units Anesthesia, ELECTRICAL CAD DESIGNER 3000 units HEPARIN given in lab by Anesthesia, ELECTRICAL CAD DESIGNER via Peripheral IV. Ordered by Hans Torres. HEPARIN 11/16/2017 7:06:05 PM 3000 units Anesthesia, ELECTRICAL CAD DESIGNER 3000 units HEPARIN given in lab by Anesthesia, ELECTRICAL CAD DESIGNER via Peripheral IV. Ordered by Hans Torres. HEPARIN 11/16/2017 7:18:53 PM 3000 units Anesthesia, ELECTRICAL CAD DESIGNER 3000 units HEPARIN given in lab by Anesthesia, ELECTRICAL CAD DESIGNER via Peripheral IV. Ordered by Hans Torres. HEPARIN 11/16/2017 7:54:24 PM 1000 units Anesthesia, ELECTRICAL CAD DESIGNER 1000 units HEPARIN given in lab by Anesthesia, ELECTRICAL CAD DESIGNER via Peripheral IV. Ordered by Hans Torres. PROTAMINE 11/16/2017 8:19:04 PM 50 mg Anesthesia, ELECTRICAL CAD DESIGNER 50 mg PROTAMINE given in lab by Anesthesia, ELECTRICAL CAD DESIGNER via Peripheral IV. Ordered by Hans Torres. Medication (Drip) Medication Time Given Dosage/Unit Concentration/Unit Diluent (ml) Solution HEPARIN DRIP 11/16/2017 6:50:15 PM 1000 units/hr 65760 units 250 D5W 1000 units/hr HEPARIN DRIP given in lab by Anesthesia, ELECTRICAL CAD DESIGNER via Peripheral IV. Pump/Drip Flow = 10 ml /hr [place] [address] units in 250 ml. Ordered by Hans Torres. HEPARIN DRIP 11/16/2017 7:06:46 PM 1500 units/hr 64401 units 250 D5W 1500 units/hr HEPARIN DRIP given in lab by Anesthesia, ELECTRICAL CAD DESIGNER via Peripheral IV. Pump/Drip Flow = 15 ml /hr [place] [address] units in 250 ml. Ordered by Hans Torres. ISUPREL 11/16/2017 8:06:49 PM 10 mcg/min 1 mg 250 NaCl .9 10 mcg/min ISUPREL given in lab by Anesthesia, ELECTRICAL CAD DESIGNER via Peripheral IV. Pump/Drip Flow = 150 ml/hr usi ng NaCl .9 with a concentration of 1 mg in 250 ml. Ordered by Hans Torres. LEVAQUIN 11/16/2017 5:40:17 PM 100 mL/hr 500 mL 100 NaCl .9 100 mL/hr LEVAQUIN given in lab by Anesthesia, ELECTRICAL CAD DESIGNER in Right Antecubital via Peripheral IV. Pump/Drip Flow = 20 ml/hr using NaCl .9 with a concentration of 500 mg in 100 ml. Ordered by Hans Torres. Initial Case Assessment Cardiovascular HR Rhythm NIBP Chest Pain 122 A-Fib 113/86 0 Edema Present Skin color Skin None Normal Warm Dry Circulatory - Right Pulses Dorsalis Pedis Posterior Tibial Femoral 1 1 1 Scale (0,1,2,3,4,d) Circulatory - Left Pulses Dorsalis Pedis Posterior Tibial Femoral 1 1 1 Scale (0,1,2,3,4,d) Circulatory - Lower Extremities Color Lower Right Color Lower Left Normal Normal Neurological State Oriented to time-place- Alert Moves all extremities person Respiration - General SpO2 (%) 95 Chronological Log Time Study Chronological Log 17:05:24 Bebo) showed up to prepare room and case 17:20:00 Patient arrived via Bed. 17:20:05 Patient Name, D.O.B, / Armband Verified By R.N. 17:20:10 Consent signed by the physician and the patient and verified by the [facility] staff. 17:20:15 Pre-op and post- op instructions given; patient acknowledges understanding of instructions. Anesthesia at bedside. Assumes care of patient. JEAN CARLOS Garcia. Please see anesthia sheets for all vitals and medications 17:20:20 given during procedure 17:24:38 Patient has been NPO for More than 6Hrs. 17:24:39 Skin Breakdown-none per pt 17:25:03 Patient Warmer Placed on the Table. 17:25:04 Disposable Defibrillator Pads Placed On Patient. 17:25:04 Keshawn Prominences Protected 17:27:56 A # 20 IV was noted in the Antecubital (left). Grade = 0 0.9NS infusing at KVO 17:27:58 A # 20 IV was noted in the Antecubital (right). Grade = 0 0.9NS infusing at KVO 17:28:00 History and physical on the chart or being dictated. 17:28:02 Table restraints applied according to hospital policy Assessment: Initial Case, WX=745 BPM, Rhythm=A-Fib, PBHE=054/86 mmhg, Chest Pain=0, Edema=None, Color=Normal, Skin = Warm, Dry Right Pulses: Abdelrahman Ped=1, Post Tib=1, Femoral=1 Left Pulses: Abdelrahman Ped=1, Post Tib=1, Femoral=1 17:28:05 Lower Right Extremities: Color=Normal Lower Left Extremities: Color=Normal Neurological: State=Alert, Ox3, PHILLIPS Respiration: SpO2=95 % 100 mL/hr LEVAQUIN given in lab by Anesthesia, ELECTRICAL CAD DESIGNER in Right Antecubital via Peripheral IV. Pum p/Drip Flow = 20 17:40:17 ml/hr using NaCl .9 with a concentration of 500 mg in 100 ml. Ordered by Hans Torres. 17:52:25 Rivers Catheter inserted by Meet Pineda RN. Clear Yellow urine noted 18:01:07 Bilateral groins prepped with 2% chlorhexidine, and draped after a 3 minute waiting time. 18:07:07 paged 18:10:41 MD arrived. Time Out. Correct patient, procedure, procedure equipment, site and side verified with physicia n present. Time 18:16:08 concurred by MD, individual staff and ELECTRICAL CAD DESIGNER. Time Out #2 - Consents verified, patient in correct position, all results are labled and displa yed, safety precautions 18:16:11 taken, antibiotics administered. Time out concurred by , individual staff and ELECTRICAL CAD DESIGNER in procedu re 18:16:46 Case Start 18:16:47 YNES in progress 18:20:47 YNES complete 18:21:05 20 mL 1% XYLOCAINE given in lab by Hans Torres in Left Groin via Subcutaneous. Ordered by Hans Torres. 18:21:52 Vascular access was obtained in the Fem Vein (left). 18:21:55 Vascular access was obtained in the Fem Vein (left). 18:21:56 Vascular access was obtained in the Fem Vein (left). 18:22:36 Vascular access was obtained in the Fem Art (left). 18:22:54 A SHEATH, EPS, FR6 FAST CATH FR 6 was advanced into the Fem Vein (left) using the Modified Seldinger technique. 18:23:09 A SHEATH, EPS, FR7 FAST CATH FR 7 was advanced into the Fem Vein (left) using the Modified Seldinger technique. 18:23:17 A SHEATH, FR10 TAHIR 11CM FR 10 was advanced into the Fem Vein (left) using the Modified S eldinger technique. 18:23:20 A SHEATH, FR4.5 PRELUDE 11CM FR 4.5 was advanced into the Fem Art (left) using the Modified Seldinger technique. 18:26:03 20 mL 1% XYLOCAINE given in lab by Hans Torres in Right Groin via Subcutaneous. Ordered b y Hans Torres. 18:26:10 Vascular access was obtained in the Fem Vein (right). 18:26:13 Vascular access was obtained in the Fem Vein (right). 18:26:24 A SHEATH, EPS, FR8 FAST CATH FR 8 was advanced into the Fem Vein (right) using the Modified Seldinger technique. A CATHETER, JSN, QUAD BUNDLE FR 5 was advanced vis Fem Vein (left) and placed in the HIS. Place ment was 18:29:01 visually confirmed under fluoroscopy. A CATHETER, JSN, QUAD BUNDLE FR 5 was advanced vis Fem Vein (left) and placed in the CS. Placem ent was visually 18:32:32 confirmed under fluoroscopy. 18:33:42 CATHETER, ACUNAV FR10 ICE (DEJAH) FR 10 Was Postioned. 18:34:43 25993 units HEPARIN given in lab by Anesthesia, ELECTRICAL CAD DESIGNER in Left Antecubital via Peripheral IV. Ordered by Hans Torres. 18:37:28 steerable cath in 18:37:36 javier in 18:37:43 transceptal, javier out A CATHETER, FR7 OPTIMA SPIRAL BUNDLE FR7 was advanced vis Fem Vein (right) and placed in the LA . Placement 18:38:25 was visually confirmed under fluoroscopy. 18:38:44 mapping in progress 18:39:39 Activated Clotting Time Drawn 18:48:56 ACT (Normal Range 90-180) = 306 18:49:59 3000 units HEPARIN given in lab by Anesthesia, ELECTRICAL CAD DESIGNER via Peripheral IV. Ordered by Hemant Torres. 1000 units/hr HEPARIN DRIP given in lab by Anesthesia, ELECTRICAL CAD DESIGNER via Peripheral IV. Pump/Drip Flow = 10 ml/hr using 18:50:15 [place] [address] units in 250 ml. Ordered by Hans Torres. mapping complete 18:56:01 spiral out 19:04:43 ablation in progress 19:05:54 ACT (Normal Range 90-180) = 301 19:06:05 3000 units HEPARIN given in lab by Anesthesia, ELECTRICAL CAD DESIGNER via Peripheral IV. Ordered by Hemant Torres. 1500 units/hr HEPARIN DRIP given in lab by Anesthesia, ELECTRICAL CAD DESIGNER via Peripheral IV. Pump/Drip Flow = 15 ml/hr using 19:06:46 D[place] [address] units in 250 ml. Ordered by Hans Torres. 19:18:44 ACT (Normal Range 90-180) = 327 19:18:53 3000 units HEPARIN given in lab by Anesthesia, ELECTRICAL CAD DESIGNER via Peripheral IV. Ordered by Hemant Torres. 19:31:38 ACT (Normal Range 90-180) = 360 19:54:06 ACT (Normal Range 90-180) = 348 19:54:24 1000 units HEPARIN given in lab by Anesthesia, ELECTRICAL CAD DESIGNER via Peripheral IV. Ordered by Hemant Torres. 20:03:55 ECG rhythm of AF noted. Patient cardioverted at 200 joules. Success 10 mcg/min ISUPREL given in lab by Anesthesia, ELECTRICAL CAD DESIGNER via Peripheral IV. Pump/Drip Flow = 150 ml /hr using NaCl .9 20:06:49 with a concentration of 1 mg in 250 ml. Ordered by Hans Torres. 20:15:07 Catheter(s) removed without difficulty A SHEATH, FR9 TAHIR 11CM FR 9 was exchanged in the Fem Vein (right). This was necessary in or daisy to achieve 20:16:06 vascular hemostasis. 20:19:04 50 mg PROTAMINE given in lab by Anesthesia, ELECTRICAL CAD DESIGNER via Peripheral IV. Ordered by Zaid Torres. 20:28:19 ACT (Normal Range 90-180) = 154 20:28:45 sheaths removed manual pressure applied 21:20:00 Case End 21:23:00 Patient moved to stretcher End Study - Contrast Media Used In Study Contrast Total Opened (mL) Total Used (mL) Total Wasted (mL) Unspecified 0 0 0 End Study - Maximum Contrast Load Max Contrast Load (mL) 744.2 End Study - Radiation Exposure Fluoro Time (minutes) 4.9 End Study - Patient Disposition Complications Transferred To Interventional Outcome No Telemetry Bed successful
[2017-11-16] MEDS ORDERED: MEPERIDINE HCL 25 MG/ML VIAL ONE (21:32)
[2017-11-16] MEDS ORDERED: MORPHINE SULFATE 2 MG/ML INJ ONE (21:59)
[2017-11-16 22:30] VITALS: BP 173/87; PULSE 71; RESP 16; TEMP 98.9; O2SAT 94
[2017-11-16] MEDS: DILTIAZEM HCL 60 MG TAB PO SCH (22:42)
[2017-11-16 23:00] VITALS: PULSE 70
[2017-11-16 23:30] VITALS: BP 163/89; PULSE 70; RESP 16; TEMP 98.3; O2SAT 96
[2017-11-17] VITALS (10 sets, daily range): BP systolic 127–135; BP diastolic 77–84; PULSE 66–76; RESP 16–18; TEMP 98.4–98.6; O2SAT 93–96
[2017-11-17 06:51] LABS: APTT (PATIENT) 23.1 SEC (24.3-30.1); INTERNATIONAL NORMALIZED RATIO 1.2 RATIO; PROTHROMBIN TIME - PATIENT 11.9 SEC (9.8-11.6)
[2017-11-17] MEDS: DILTIAZEM HCL 60 MG TAB PO SCH (08:49)
[2017-11-17] MEDS ORDERED: LISINOPRIL 10 MG TAB PO SCH (09:00)
[2017-11-17] MEDS ORDERED: SERTRALINE HCL 100 MG TAB PO SCH (09:00)
[2017-11-17] MEDS ORDERED: AMIODARONE 200 MG TAB PO SCH (09:00)
[2017-11-17] MEDS ORDERED: RIVAROXABAN 20 MG TAB PO SCH (09:00)
--- NOTE | 2017-11-17 10:34 | PD.CARD ---
Atrial Fibrillation Ablation PROCEDURE DATE: Nov 16, 2017 PROCEDURES PERFORMED: 1. Electrophysiology study on Isuprel infusion 2. CS cannulation 3. 3-D mapping 4. Transseptal approach 5. Right and left heart catheterization 6. Intracardiac echo 7. Radiofrequency ablation of atrial fibrillation 8. Pulmonary vein isolation 9. Posterior wall ablation 10. Mitral valve isolation 11. Mitral line creation 12. Left atrial tachycardia ablation 13. Roof line creation 14. Floor line creation 15. Anterior and posterior ablation 16. Cardioversion INDICATIONS FOR THE PROCEDURE Mr. Cruz is a 66-year-old male with hx of atrial fibrillation, previous ablation, left atrial tachycardia, very symptomatic, admits for electrophysiology study and ablation. The risks, the nature and the benefits of the procedure were clearly stated to him. The risks include pneumothorax, cardiac perforation, stroke, need for open heart surgery and even . The patient understood and agreed to proceed. DESCRIPTION OF THE PROCEDURE IN DETAIL As written informed consent was obtained prior to esophageal echocardiogram, the patient was kept on the table where he was prepped and draped in the usual sterile fashion. Conscious sedation was initiated and maintained throughout the procedure by the anesthesiologist. Once sedation was verified, the right and left inguinal areas were anesthetized with 2% Xylocaine. Using modified Seldinger technique, the left femoral vein was cannulated on three occasions, three guidewires were advanced. Over the wire a 6, 7 and a 10-[place] Hemaquet were advanced. Then the left femoral artery was cannulated on one occasion, one guidewire was advanced. Over the wire a 4-[place] Hemaquet was advanced. Then the right femoral vein was cannulated on one occasion, one guidewire was advanced. Over the wire a 8-[place] Hemaquet was advanced. Then under fluoroscopic guidance through the 6 and 7-[place] Hemaquet, two 5-Northern [place] Lizet curved quadripolar electrophysiology catheters were advanced and placed around the His as well as coronary sinus. Basic interval was measured. The patient was in atrial fibrillation. Through the 10-[place] Hemaquet, a Cordis Diez AcuNav intracardiac echo catheter was advanced and placed at the right atrium. Multiple view was obtained. There is pericardial effusion, pulmonary vein was seen, atrial septal was visualized. Then the 8-[place] Hemaquet in the right femoral vein was exchanged for Agilis transseptal sheath that was placed all the way to the superior vena cava. Through the sheath a Karon needle was advanced, then the sheath, the dilator and the needle were progressed until foci engaged. Once engaged, the needle was advanced. RF was delivered for 2 seconds. I was able to cross into the left atrium. Once the needle crossed, the dilator was advanced. Once the dilator crossed, the sheath was advanced. Once the sheath crossed, the dilator and the needle were removed. At this point I did flood the system and fluid movement was seen in the left atrium the indicates the sheath is in good position. The patient already received 12,000 units of heparin. The goal is to keep an ACT around 350 during ablation. Then through the sheath a [place] 20 pulse circumferential catheter was advanced. Using [employer] endocardial solution mapping system, a two-dimensional configuration of the left atrium was obtained. Points were taken at the left superior and inferior veins, right superior and inferior veins, mitral valve, and appendages. Then through the sheath a [place] TactiCath 65cm 3.5mm irrigated tipped mapping and radiofrequency ablation catheter was advanced. Esophageal probe was placed temperature monitoring during ablation. When it increased to 0.5 degrees Celsius above baseline, I moved to a different area of the atrium. First I did isolate the left superior and inferior vein. I did make a big soboba around the veins. Posterior was ablated. Patient was in left atrial tachycardia. Then a roof line was created, a floor line was created, a mitral line was isolated, then the mitral valve was isolated. I did create a line from the floor to the roof area, passing by the left atrial appendage. Then the right superior and inferior veins were isolated. I did remap the atrium. There is no significant signal in the atrium. At this point I decided to proceed with cardioversion. A 200 sync biphasic joule was delivered that converted the patient into sinus rhythm. At that point I did advance the circumferential catheter again into the vein. There was no signal into the vein, pacing from the vein showed no conduction to the atrium. Isuprel infusion was initiated at 20 mcg for over minutes. No tachyarrhythmia was induced, post Isuprel no tachyarrhythmia was induced. At that point the procedure was complete. All catheters were removed, atrial septal sheath was exchanged for 9-Northern Irish Hemaquet, intracardiac echo showed no pericardial effusion. There is still good flow in the pulmonary vein. The patient is going to be transferred to the recovery room. No incident report. The patient tolerated the procedure. Blood loss was minimal. FINDINGS 1. Electrocardiogram: At baseline the patient was in atrial fibrillation, post procedure the patient was in sinus rhythm. 2. Basic interval: Base cycle length was around 480. Post ablation she was around 1050 milliseconds. AH at 90 and HV at 54 milliseconds. 3. Tachyarrhythmia: Atrial fibrillation was mapped and ablated. Atrial tachycardia was ablated. The ablation was successful. CONCLUSION Successful electrophysiology study, mapping, radiofrequency ablation of atrial fibrillation, left atrial tachycardia, pulmonary vein isolation, posterior ablation, mitral valve isolation, mitral line creation, roof line creation, floor line creation, left atrial tachycardia, and cardioversion. COMMENTS AND RECOMMENDATIONS The patient is going to be transferred to the telemetry unit. Will be observed and when stable can be discharged home. Hans Torres MD Nov 17, 2017 10:34
--- NOTE | 2017-11-17 10:40 | HHI.PR ---
Subjective Remarks Feeling better Objective Vital Signs Date Time Temp Pulse Resp B/P (MAP) Pulse Ox O2 Delivery O2 Flow Rate FiO2 11/17/17 07:51 93 Nasal Cannula 2.00 11/17/17 07:20 98.6 69 18 127/84 (98) 94 11/17/17 06:00 66 11/17/17 05:00 76 11/17/17 04:00 70 11/17/17 03:00 98.4 68 16 135/77 (96) 96 11/17/17 03:00 74 11/17/17 02:00 66 11/17/17 01:00 66 11/17/17 00:00 68 11/16/17 23:30 98.3 70 16 163/89 (113) 96 11/16/17 23:00 70 11/16/17 22:30 98.9 71 16 173/87 (115) 94 11/16/17 22:30 71 11/16/17 22:00 68 21 169/83 (111) 94 Nasal Cannula 3 11/16/17 21:45 67 21 167/86 (113) 94 Nasal Cannula 3 11/16/17 21:35 98.7 70 20 173/92 (119) 95 Nasal Cannula 3 11/16/17 17:10 98.5 98 16 120/81 (94) 90 I/O 11/16/17 11/16/17 11/16/17 11/17/17 11/17/17 11/17/17 07:00 15:00 23:00 07:00 15:00 23:00 Intake Total 480 ml Output Total 350 ml Balance 130 ml Intake Oral 480 ml Output Urine Total 350 ml # Bowel Movements 0 Result Diagram: 11/16/17 1645 11/16/17 1645 Imaging Alert, fully oriented Lungs: ventilated Heart: s1, S2 regular, no gallop Abdomen: soft, no mass Ext: no edema, ankylosing extremities Current Medications Medications (Trade) Dose Ordered Sig/Irlanda Route Start Time Stop Time Status Last Admin Sodium Chloride 500 ml @ 30 mls/hr [id number] IV 11/16/17 17:00 (Ativan) 1 mg PLASTIC WORKER SL 11/16/17 17:15 11/19/17 17:14 Lactated Ringer's 1,000 ml @ 30 mls/hr Q24H PRN IV 11/16/17 17:15 11/19/17 17:14 Sodium Chloride 500 ml @ 30 mls/hr [id number] PRN IV 11/16/17 17:15 11/19/17 17:14 (Lopressor) 25 mg PLASTIC WORKER PRN PO 11/16/17 17:15 11/19/17 17:14 (Betadine 5% Antisepsis Kit) 1 applic PLASTIC WORKER PRN EACH NARE 11/16/17 17:15 11/19/17 17:14 (Chlorhexidine 2% Cloth) 3 pack PLASTIC WORKER PRN TOPICAL 11/16/17 17:15 11/19/17 17:14 (Percocet 5-325 Mg) 1 tab Q4H PRN PO 11/16/17 20:30 11/17/17 08:48 (Percocet 5-325 Mg) 2 tab Q4H PRN PO 11/16/17 20:30 11/16/17 22:42 (Ativan Inj) 0.5 mg UNSCH PRN IV PUSH 11/16/17 20:30 11/17/17 20:29 (Atropine Inj) 0.5 mg UNSCH PRN IV PUSH 11/16/17 20:30 Sodium Chloride 250 ml @ 500 mls/hr ONCE PRN IV 11/16/17 20:30 11/17/17 20:29 (Reglan Inj) 10 mg Q4H PRN IV PUSH 11/16/17 20:30 (Zofran Inj) 4 mg Q4H PRN IV PUSH 11/16/17 20:30 (Xylocaine 1% Inj (50 ml)) 10 ml UNSCH PRN INFIL 11/16/17 20:30 11/17/17 20:29 (Proair Hfa Inh) 1 puff Q4H PRN INH 11/16/17 20:30 (Cordarone) 100 mg DAILY PO 11/17/17 09:00 11/17/17 08:50 (Prinivil) 10 mg DAILY PO 11/17/17 09:00 11/17/17 08:50 (Xarelto) 20 mg DAILY PO 11/17/17 09:00 11/17/17 08:48 (Zoloft) 100 mg DAILY PO 11/17/17 09:00 11/17/17 08:49 (Cardizem) 120 mg QID PO 11/16/17 21:00 11/17/17 08:49 (Symbicort 80-4.5 Mcg Inh) 1 puff BID INH 11/16/17 21:00 11/17/17 10:10 Miscellaneous Information ALL NURSING DEPARTME... UNSCH PRN .XX 11/16/17 21:24 11/17/17 21:23 Assessment and Plan Problem List: (1) Atrial fibrillation ICD Codes: I48.91 - Unspecified atrial fibrillation Plan: SP ablation Doing well In sinus rhythm Can be DH Follow up as previously scheduled (2) Shortness of breath ICD Codes: R06.02 - Shortness of breath Plan: Improving YNES indicates an EF less than 20% Will repeated echo in 2 months Hans Torres MD Nov 17, 2017 10:40
--- NOTE | 2017-11-17 13:02 | EKG ---
Date Performed: 11/17/2017 Time Performed: 04:11:04 PTAGE: 66 years EKG: Sinus rhythm Normal ECG PREVIOUS TRACING : 11/16/2017 21.38 Compared to prior tracing no significant change DOCTOR: Moi Munroe Interpretating Date/Time 11/17/2017 13:00:34
--- NOTE | 2017-11-17 14:19 | EKG ---
Date Performed: 11/16/2017 Time Performed: 17:11:22 PTAGE: 66 years EKG: Atrial fibrillation with rapid ventricular response. Incomplete RBBB Inferior and septal T wave changes are nonspecific Abnormal ECG Compared to PREVIOUS TRACING , atrial fibrillation is new otherwise no significant change. PREVIOUS T RACIN09/25/2017 04.52 DOCTOR: Moi Munroe Interpretating Date/Time 11/17/2017 14:19:38
--- NOTE | 2017-11-17 14:21 | EKG ---
Date Performed: 11/16/2017 Time Performed: 21:38:00 PTAGE: 66 years EKG: Sinus rhythm INCOMPLETE RIGHT BUNDLE BRANCH BLOCK PROLONGED QT INTERVAL ABNORMAL ECG Compared to PREVIOUS TRACING , sinus rhythm replaces atrial fibrillation. PREVIOUS TRACIN 7 17.11 DOCTOR: Mio Munroe Interpretating Date/Time 11/17/2017 14:20:06
== END 2017-11-17 12:19 | disposition home or self-care (01) ==
LOC: HDOC 14:55 → HDIC 14:55 → HCIS 22:20 → HDOC 11-17 12:19
PROVIDERS: ATTEND Internal Medicine Interventional Cardiology
DX: I48.91 Unspecified atrial fibrillation (principal)
CPT/HCPCS: 00537; 80048; 85002; 85025; 85610; 85730; 86850; 86900; 86901; 92960; 93005; 93312; 93320; 93325; 93613; 93623; 93656; 93662; C1730; C1731; C1732; C1759; C1766; C2630; J1644; J1956; J2175; J2270; J2720